=== PATIENT | male | born 1980 | race Caucasian/White ===

== ENCOUNTER 2020-05-24 14:26 | Emergency (ER) | payer SELFPAY ==
[~2020-05-24] VITALS: Ht 170.2 cm; Wt 71.2 kg
[2020-05-24 15:01] VITALS: BP 122/86
[2020-05-24] MEDS ORDERED: METHOCARBAMOL 750 MG TABLET PO ONE (15:30)
[2020-05-24] MEDS ORDERED: ACETAMINOPHEN 500 MG TABLET PO ONE (15:30)
--- NOTE | 2020-05-24 16:49 | NUR ---
TO ROOM FROM LOBBY. NAD.
[2020-05-24] MEDS ORDERED: METHOCARBAMOL 750 MG TABLET ONE (16:56)
[2020-05-24] MEDS ORDERED: ACETAMINOPHEN 500 MG TABLET ONE (16:56)
--- NOTE | 2020-05-24 17:00 | NUR ---
pt medicated per mar at this time.
--- NOTE | 2020-05-24 17:26 | NUR ---
Dinh castro in EDM - 05/24/20 at 1727 by MYORK PT TO XRAY VIA WHEELCHAIR AT THIS TIME. PT IV ABX INFUSING PER MAR.
--- NOTE | 2020-05-24 17:27 | NUR ---
PT TO XRAY VIA WHEELCHAIR AT THIS TIME
== END 2020-05-24 18:14 | disposition home or self-care (01) ==
LOC: ED 18:08
DX: M54.41 Lumbago with sciatica, right side (principal)
CPT/HCPCS: 72110; 99284; J7512